=== PATIENT | male | born 1975 | race Caucasian/White ===

== ENCOUNTER 2020-10-21 16:45 | Inpatient (IN) | payer OTHER ==
[~2020-10-21] VITALS: Ht 185.4 cm; Wt 122.5 kg
[2020-10-21 18:12] LABS: BASOPHIL 0.3 % (0-2); EOSINOPHIL 0 % (0-5); HCT 47.4 % (42.0-52.0); HGB 15.9 g/dl (13.2-18.0); LYMPHOCYTE 18.1 % (15-48); MCH 29.6 pg (25.0-31.0); MCHC 33.5 g/dL (32.0-36.0); MCV 88.1 fL (78.0-100.0); MPV 10.8 fL (6.0-9.5); NEUTROPHIL 71.7 % (41-80); NRBC 0; PLT 124 K/uL (150-400); RBC 5.38 M/uL (4.70-6.00); RDW 12.7 % (11.5-14.0); WBC 6.5 K/uL (4.0-10.5)
[2020-10-21 18:26] LABS: ALBUMIN 3.4 g/dL (3.4-5.0); BILIRUBIN - TOTAL 0.4 mg/dL (0.2-1.0); BUN/CREAT RATIO (CALC) 17.5 RATIO; CREATININE 1.14 mg/dL (0.67-1.17); GLOBULIN (CALCULATION) 3.7 g/dL; POTASSIUM 3.9 mmol/L (3.5-5.1); TOTAL PROTEIN 7.1 g/dL (6.4-8.2)
[2020-10-21 18:29] LABS: PRO-BNP 138 pg/mL (<125)
[2020-10-22 05:53] LABS: BASOPHIL 0.2 % (0-2); EOSINOPHIL 0 % (0-5); HGB 14.1 g/dl (13.2-18.0); LYMPHOCYTE 22.8 % (15-48); MCH 29.7 pg (25.0-31.0); MCHC 32.8 g/dL (32.0-36.0); MCV 90.5 fL (78.0-100.0); MONOCYTE 9.5 % (0-12); MPV 10.7 fL (6.0-9.5); NEUTROPHIL 64.7 % (41-80); NRBC 0; RBC 4.75 M/uL (4.70-6.00); RDW 12.8 % (11.5-14.0); WBC 4.7 K/uL (4.0-10.5)
[2020-10-22 05:55] LABS: PLT 125 K/uL (150-400)
[2020-10-22 07:23] LABS: ALBUMIN 2.7 g/dL (3.4-5.0); BILIRUBIN - TOTAL 0.2 mg/dL (0.2-1.0); BUN/CREAT RATIO (CALC) 16.7 RATIO; C-REACTIVE PROTEIN 13.3 mg/dL (<=0.90); CREATININE 1.02 mg/dL (0.67-1.17); GLOBULIN (CALCULATION) 3.4 g/dL; MAGNESIUM 1.6 mg/dL (1.8-2.4); PHOSPHORUS 2.8 mg/dL (2.6-4.7); POTASSIUM 4.8 mmol/L (3.5-5.1); TOTAL PROTEIN 6.1 g/dL (6.4-8.2)
[2020-10-23 07:31] LABS: BASOPHIL 0.2 % (0-2); EOSINOPHIL 0 % (0-5); HCT 41.8 % (42.0-52.0); HGB 13.7 g/dl (13.2-18.0); LYMPHOCYTE 25.7 % (15-48); MCH 29.6 pg (25.0-31.0); MCHC 32.8 g/dL (32.0-36.0); MCV 90.3 fL (78.0-100.0); MONOCYTE 11.5 % (0-12); NEUTROPHIL 61.4 % (41-80); NRBC 0; PLT 152 K/uL (150-400); RBC 4.63 M/uL (4.70-6.00); RDW 12.8 % (11.5-14.0); WBC 8.4 K/uL (4.0-10.5)
[2020-10-23 07:48] LABS: BUN/CREAT RATIO (CALC) 18.9 RATIO; CREATININE 1.06 mg/dL (0.67-1.17); MAGNESIUM 1.8 mg/dL (1.8-2.4); POTASSIUM 4.9 mmol/L (3.5-5.1)
--- NOTE | 2020-10-23 18:22 | NUR ---
PATIENT O2 SATS RANGE FROM 86-90% ON 15 OXIMIZER. PATIENT STATES CAN TELL MORE SOA WITH EXERTION. RESPIRATORY AND MD NOTIFIED. PATIENT PLACED ON VAPOTHERM AT THIS TIME. O2 SAT 95-97%
[2020-10-24 05:49] LABS: BASOPHIL 0.1 % (0-2); EOSINOPHIL 0 % (0-5); HCT 43.3 % (42.0-52.0); HGB 14.1 g/dl (13.2-18.0); LYMPHOCYTE 15.6 % (15-48); MCH 29.5 pg (25.0-31.0); MCHC 32.6 g/dL (32.0-36.0); MCV 90.6 fL (78.0-100.0); MPV 9.9 fL (6.0-9.5); NEUTROPHIL 71.5 % (41-80); NRBC 0; PLT 165 K/uL (150-400); RBC 4.78 M/uL (4.70-6.00); RDW 12.7 % (11.5-14.0); WBC 7.7 K/uL (4.0-10.5)
[2020-10-24 06:41] LABS: ALBUMIN 2.4 g/dL (3.4-5.0); BILIRUBIN - TOTAL 0.4 mg/dL (0.2-1.0); BUN/CREAT RATIO (CALC) 26.1 RATIO; C-REACTIVE PROTEIN 4.2 mg/dL (<=0.90); CREATININE 0.88 mg/dL (0.67-1.17); GLOBULIN (CALCULATION) 3.7 g/dL; MAGNESIUM 1.7 mg/dL (1.8-2.4); POTASSIUM 4.6 mmol/L (3.5-5.1); TOTAL PROTEIN 6.1 g/dL (6.4-8.2)
--- NOTE | 2020-10-24 12:50 | NUR ---
NOTIFIED DR. WATKINS PT STATES "I CANNOT TAKE IT ANYMORE. I CAN'T DO IT ANYMORE." DR. WATKINS SAID TO CALL ANESTHESIA TO INTUBATE PATIENT. ANESTHESIA AND RT CALLED. PT FACETIMING WHEN ENTERING ROOM. 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 THEY WERE IN AGEEANCE TO PROCEED WITH INTUBATION. ANETHESIA TO ROOM. GAVE SUCC 100MG AND PROPOFOL 150MG AT 1310. PT WAS INTUBATED USING GLIDESCOPE AND 8 ET TUBE. TUBE SECURE 23CM AT THE LIP AT 1313.
--- NOTE | 2020-10-24 14:15 | NUR ---
9/10 Please monitor for 02 needs.
--- NOTE | 2020-10-24 17:45 | NUR ---
PT WAS PRONED AT 1745. VEC STARTED AT 1712. ALL PRESSURE POINTS PADDED, DOUBLE PILLOWS UNDER PT. VSS AT TIME OF PRONING. O2 SATS 93% ONCE RECOVERED FROM PRONING.
[2020-10-25 06:20] LABS: BASOPHIL 0.4 % (0-2); EOSINOPHIL 0 % (0-5); HCT 43.6 % (42.0-52.0); LYMPHOCYTE 9.1 % (15-48); MCH 29.5 pg (25.0-31.0); MCHC 32.1 g/dL (32.0-36.0); MONOCYTE 10.4 % (0-12); MPV 10.1 fL (6.0-9.5); NEUTROPHIL 76.5 % (41-80); NRBC 0; PLT 181 K/uL (150-400); RBC 4.74 M/uL (4.70-6.00); RDW 12.4 % (11.5-14.0)
[2020-10-25 06:28] LABS: WBC 13.8 K/uL (4.0-10.5)
[2020-10-25 06:53] LABS: ALBUMIN 2.4 g/dL (3.4-5.0); BILIRUBIN - TOTAL 0.5 mg/dL (0.2-1.0); BUN/CREAT RATIO (CALC) 39.4 RATIO; CREATININE 0.71 mg/dL (0.67-1.17); GLOBULIN (CALCULATION) 3.6 g/dL; MAGNESIUM 2.1 mg/dL (1.8-2.4); PHOSPHORUS 5.1 mg/dL (2.6-4.7); POTASSIUM 5.1 mmol/L (3.5-5.1)
--- NOTE | 2020-10-25 19:37 | NUR ---
PER ROCIO DENIS PER DR. WATKINS ETT NEEDED ADVANCED 3CM ETT WAS AT 22 ADVANCED TO 25.
--- NOTE | 2020-10-26 01:24 | NUR ---
PATIENT PRONED W/O INCIDENT
[2020-10-26 04:10] LABS: BASOPHIL 0.6 % (0-2); EOSINOPHIL 0 % (0-5); HCT 40.5 % (42.0-52.0); HGB 13.4 g/dl (13.2-18.0); LYMPHOCYTE 6.7 % (15-48); MCH 29.6 pg (25.0-31.0); MCHC 33.1 g/dL (32.0-36.0); MCV 89.4 fL (78.0-100.0); MONOCYTE 8.1 % (0-12); MPV 10.2 fL (6.0-9.5); NEUTROPHIL 77.4 % (41-80); NRBC 0; PLT 199 K/uL (150-400); RBC 4.53 M/uL (4.70-6.00); RDW 12.2 % (11.5-14.0); WBC 16.7 K/uL (4.0-10.5)
[2020-10-26 04:35] LABS: ALBUMIN 2.2 g/dL (3.4-5.0); BILIRUBIN - TOTAL 0.5 mg/dL (0.2-1.0); BUN/CREAT RATIO (CALC) 39.4 RATIO; CREATININE 0.71 mg/dL (0.67-1.17); GLOBULIN (CALCULATION) 3.4 g/dL; PHOSPHORUS 3.2 mg/dL (2.6-4.7); POTASSIUM 4.2 mmol/L (3.5-5.1); TOTAL PROTEIN 5.6 g/dL (6.4-8.2)
--- NOTE | 2020-10-26 20:17 | NUR ---
PATIENT WAS NOT OXYGENATING WELL AT BEGINNING OF SHIFT. PATIENT'S PEEP WAS TAKEN DOWN TO 8 TODAY. PATIENT O2 SAT HAS BEEN TRENDING DOWN SINCE BEGINNING OF SHIFT. DISCUSSED CARE WITH JOELLEN CALVERT. PATIENT PEEP WAS INCREASED TO 12. PATIENT PEAK PRESSURES REMAIN LOW AT 30 O2 SAT IS TRENDING UP. CURRENTLY 94% RN STATED PATIENT WAS AROUND 89% AT ONE POINT. PATIENT DOES NOT HAVE ANY SECRETIONS CURRENTLY COMING FROM ET TUBE.
--- NOTE | 2020-10-26 23:31 | NUR ---
PATIENT PEAK PRESSURES REMAIN LOW 27/28. O2 SAT 94-95% SINCE PEEP CHANGED. PATIENT HR REMAINS STABLE AROUND 55-60. EVEN CHEST RISE WITH EACH BREATH. FLOW ADJUSTED ON VENTILATOR TO 65 CONTINUE TO MONITOR PATIENT
[2020-10-27 07:05] LABS: BASOPHIL 0.8 % (0-2); EOSINOPHIL 0 % (0-5); HCT 42.1 % (42.0-52.0); HGB 13.9 g/dl (13.2-18.0); LYMPHOCYTE 5.7 % (15-48); MCH 29.5 pg (25.0-31.0); MCV 89.4 fL (78.0-100.0); MONOCYTE 7.4 % (0-12); NEUTROPHIL 77.4 % (41-80); NRBC 0; PLT 261 K/uL (150-400); RBC 4.71 M/uL (4.70-6.00); RDW 12.1 % (11.5-14.0); WBC 22.2 K/uL (4.0-10.5)
[2020-10-27 08:04] LABS: ALBUMIN 2.3 g/dL (3.4-5.0); BILIRUBIN - TOTAL 0.6 mg/dL (0.2-1.0); BUN/CREAT RATIO (CALC) 38.2 RATIO; CREATININE 0.76 mg/dL (0.67-1.17); GLOBULIN (CALCULATION) 3.1 g/dL; MAGNESIUM 2.2 mg/dL (1.8-2.4); POTASSIUM 4.5 mmol/L (3.5-5.1); TOTAL PROTEIN 5.4 g/dL (6.4-8.2)
--- NOTE | 2020-10-27 11:33 | NUR ---
PT MUKESH IS 35.00 AT [facility]; RN KNOWS OF COPAY; WILL LET MD KNOW
[2020-10-28 07:30] LABS: BASOPHIL 0.6 % (0-2); EOSINOPHIL 0 % (0-5); HGB 12.8 g/dl (13.2-18.0); LYMPHOCYTE 5.5 % (15-48); MCH 29.8 pg (25.0-31.0); MCHC 32.8 g/dL (32.0-36.0); MCV 90.7 fL (78.0-100.0); MONOCYTE 6.9 % (0-12); MPV 9.7 fL (6.0-9.5); NRBC 0; PLT 285 K/uL (150-400); RDW 12.4 % (11.5-14.0); WBC 21.1 K/uL (4.0-10.5)
[2020-10-28 08:10] LABS: ALBUMIN 2.2 g/dL (3.4-5.0); ALKALINE PHOSHATASE 52 U/L (46-116); ALT 127 U/L (16-63); AST 51 U/L (15-37); BILIRUBIN - TOTAL 0.5 mg/dL (0.2-1.0); BUN 23 mg/dL (7-18); BUN/CREAT RATIO (CALC) 34.8 RATIO; C-REACTIVE PROTEIN <0.20 mg/dL (<=0.90); CHLORIDE 111 mmol/L (98-107); CO2 (BICARBONATE) 27 mmol/L (21-32); CREATININE 0.66 mg/dL (0.67-1.17); GLOBULIN (CALCULATION) 3.1 g/dL; GLUCOSE 149 mg/dL (74-106); MAGNESIUM 2.4 mg/dL (1.8-2.4); PHOSPHORUS 3.5 mg/dL (2.6-4.7); POTASSIUM 4.6 mmol/L (3.5-5.1); TOTAL PROTEIN 5.3 g/dL (6.4-8.2)
--- NOTE | 2020-10-28 18:51 | NUR ---
PT WAS TAKEN OFF PRONE AT 8AM AND RETURNED TO PRONE AT 1700
--- NOTE | 2020-10-29 02:44 | NUR ---
10/29/2020 0100 PT. TURNED TO [place]PINE AT THIS TIME IN PREPARATION TO TRANSFER TO OTHER FACILITY. PT TOLERATED TURN. MAINTIANED NSR. HR IN 80'S. BP 144/90. SATS AT 96%. ETT 25 AT LIP. NO ALARMS ON VENT. 10/29/2020 0200 EMS ARRIVED AND TRANSFERED PATIENT TO [facility]. NO COMPLICATIONS. [facility] NOTIFIED OF TRANSFER.
--- NOTE | 2020-10-29 02:50 | NUR ---
10/28/20 2330- PT ACCEPTED FOR TRANSFER AT [facility]. REPORT CALLED TO ROCIO HARRISON.
== END 2020-10-29 01:56 | disposition other institution (70) | DRG 870 ==
LOC: FER 16:45 → FMS 20:50 → FTCU 10-23 19:31
PROVIDERS: Emergency Medicine; Internal Medicine; Nurse Practitioner; ADMIT Allergy & Immunology Allergy
PROC: XW033E5 Introduction of Remdesivir Anti-infective into Peripheral Vein, Percutaneous Approach, New Technology Group 5 (ICD-10-PCS; 2020-10-21)
PROC: XW0DXM6 Introduction of Baricitinib into Mouth and Pharynx, External Approach, New Technology Group 6 (ICD-10-PCS; 2020-10-21)
PROC: 8E0ZXY6 Isolation (ICD-10-PCS; 2020-10-21)
PROC: 0BH17EZ Insertion of Endotracheal Airway into Trachea, Via Natural or Artificial Opening (ICD-10-PCS; principal; 2020-10-24)
PROC: 5A1955Z Respiratory Ventilation, Greater than 96 Consecutive Hours (ICD-10-PCS; 2020-10-24)
DX: A41.89 Other specified sepsis (principal); U07.1 COVID-19; J12.82 Pneumonia due to coronavirus disease 2019; J96.01 Acute respiratory failure with hypoxia; R65.20 Severe sepsis without septic shock; F41.9 Anxiety disorder, unspecified; M10.9 Gout, unspecified; Z98.890 Other specified postprocedural states
CPT/HCPCS: 31500; 36415; 36600; 71045; 71275; 74018; 80048; 80053; 82728; 82803; 82962; 83605; 83735; 83880; 84100; 84145; 84484; 85025; 85379; 86140; 87040; 93005; 94002; 94010; 94640; 94760; 94762; C9399; J1100; J1650; J1885; J2250; J2405; J2550; J2704; J3010; J3475; J7030; J7050; J8540; Q9967; U0002